=== PATIENT | female | born 1965 | race Caucasian/White ===

== ENCOUNTER 2016-04-30 13:01 | Outpatient (CLI) | payer OTHER ==
[~2016-04-30 13:01] MED LIST: ENDOCET1 TAB PO; IBUPROFEN400 MG PO; NEURONTIN300 MG PO; XANAX0.5 MG PO
--- NOTE | 2016-04-30 14:27 | DIAGNOSTIC IMAGING REPORT ---
PROCEDURE: CT LOW-DOSE LUNG CA SCREENING CLINICAL INDICATION: LUNG CA SCREENING TECHNIQUE: Low-dose helical CT images of the lungs without contrast were obtained and reconstructed at 2.5 mm intervals. MIP reformations in coronal and sagittal planes were created. Radiation dose 1.39 mGy. COMPARISON: Oldest available comparison: Chest x-ray 05/14/2009 FINDINGS: NODULES: Location: Right middle lobe image location: 58 size: 2 mm composition: Ground glass Location: Left lower lobe; image location: 86; size: 3 mm; composition ground-glass Location: Left lower lobe; image location 108; size 3 mm; composition ground-glass OTHER LUNG FINDINGS: Minor anterior right middle lobe scarring. AIRWAY: Branches normally without narrowing or endobronchial nodule. PLEURA: No effusions, thickening, or pneumothorax. AORTA AND GREAT VESSELS: Normal caliber, atherosclerotic calcification. PULMONARY ARTERIES: Normal. . HEART AND PERICARDIUM: Normal size without effusion, thickening. LYMPH NODES: No enlarged nodes visible. THORACIC SPINE: No suspicious lesion. Mild degenerative changes CHEST WALL: Normal. Right breast surgical changes. VISUALIZED UPPER ABDOMEN: Normal. Cholecystectomy. Small hiatal hernia. IMPRESSION: 1. Three bilateral pulmonary nodules 2- 3 mm, indeterminate but likely postinflammatory 2. Category 2. Continue annual screening with LDCT in 12 months. 3. Right breast surgical changes All CT scans at this facility use dose modulation, iterative reconstruction, and/or weight-based dosing when appropriate to reduce radiation dose to as low as reasonably achievable.
--- NOTE | 2016-04-30 18:50 | DIAGNOSTIC IMAGING REPORT ---
PROCEDURE: MG UNILATERAL DIAG-LT W/CAD INDICATION: Follow-up nodular changes and left breast. History of treated right breast carcinoma. TECHNIQUE: CC, MLO and true-lateral digital views of left breast. In addition, spot compression CC and MLO views were obtained of the left breast (region of clinical concern). Finally, high-resolution left breast ultrasound was performed (18 mHz). COMPARISON: Comparison is made to left mammogram and left breast ultrasound (08/29/2015), and screening mammogram study (08/29/2015). Comparison is also made to diagnostic mammogram and left breast ultrasound (03/27/2015). FINDINGS: MAMMOGRAM: Computer-aided detection applied. Moderately dense and mildly nodular parenchymal pattern. A few dystrophic calcifications. BREAST ULTRASOUND: There are three to four benign appearing cysts or normal intramammary lymph nodes in the left breast which appears stable (largest 0.8 cm ). No evidence of underlying abnormality. IMPRESSION: 1. Negative mammogram and negative left breast ultrasound with minor cystic changes and normal intramammary lymph nodes. 2. Findings discussed with the patient. 3. Resume routine screening schedule (August 2016). RESULT CODE: 2- Benign finding(s). A. A negative report should not delay biopsy if a dominant or clinically suspicious mass is present. 10-15% of cancers are not identified by x-ray. B. A negative report may reinforce clinical impression. C. Adenosis and dense breasts may obscure an underlying neoplasm. D. False positive reports average 6-10%. E.. A yearly screening mammogram is recommended. A reminder letter will be scheduled.
== END 2016-04-30 23:00 ==
LOC: MAM SRH 13:01
DX: Z12.31 Encounter for screening mammogram for malignant neoplasm of breast (principal); C50.911 Malignant neoplasm of unspecified site of right female breast; R91.8 Other nonspecific abnormal finding of lung field; D50.9 Iron deficiency anemia, unspecified; Z80.0 Family history of malignant neoplasm of digestive organs

== ENCOUNTER 2016-07-03 11:56 | Emergency (ER) | payer OTHER ==
--- NOTE | 2016-07-03 13:32 | ED NURSING NOTES ---
Clinical Report - Nurses [facility] [address] [place] [address] 07/03/2016 11:57 Patient: HU HOPKINS TRIAGE Triage time 12:03. Acuity: LEVEL 4. Alert. --12:06 Yvonne Arredondo R.N. 12:08 07/03/16. BP: 106/77. HR: 66. RR: 16. O2 saturation: 99%. Temp: 97.5 F. Pain level now 09/20. --12:12 Yvonne Arredondo R.N. Chief Complaint: (Low back pain). --15:02 Yvonne Arredondo R.N. Weight: 56.6 kg stated. Height/Length: 66 inches Per Patient. BMI: 20.1. --12:06 Yvonne Arredondo R.N. Medications Gabapentin Oral. Indocet 10/325, 4x a day. Iron Oral. Xanax Oral. --12:05 Yvonne Arredondo R.N. Allergies No Known Drug Allergy. --12:05 Yvonne Arredondo R.N. History Arrived by private vehicle. Historian: patient. Primary physician (Joanne). Onset. (about 2 weeks ago). ( Was making the bed and had some pain in her lower back 2 weeks ago). 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 Did not take Tylenol or ibuprofen prior to arrival. PAST MEDICAL HX: Immunizations: up-to-date. SOCIAL HX: Current every day heavy tobacco smoker- 1 pack per day. No alcohol use or drug use. --12:06 Yvonne Arredondo R.N. ( Low back pain). --15:01 Yvonne Arredondo R.N. ( low back pain). --15:02 Yvonne Arredondo R.N. PROBLEMS: Acute Pain. Constipation. Broken tooth. Breast Cancer. Fall. Back Pain. LNMP - Last Normal Menstrual Period. Concussion. Knee Injury. Sciatica. Chronic Back Pain. Arthritis. Rheumatoid Arthritis. Brain Tumor. Sinusitis. Headache. Insomnia. Neck Injury. --12:05 Yvonne Arredondo R.N. ADDITIONAL SURGERIES: Bladder Suspension. Cholecystectomy. Hernia Repair. Hysterectomy. --12:05 Yvonne Arredondo R.N. PHYSICAL ASSESSMENT GENERAL / NEURO / PSYCH: Alert. Oriented X 4. Appears in distress. --12:06 Yvonne Arredondo R.N. NURSING PROGRESS NOTES Two patient identifiers checked. Call light placed in reach. Patient ready for evaluation- ED physician notified. --12:06 Yvonne Arredondo R.N. 12:36 07/03/2016 Toradol (Ketorolac Tromethamine) IM 60 mg given. Given in the left gluteus jovanni. Allergies verified and confirmed 5 rights. --12:36 Yvonne Arredondo R.N. The patient is calm and resting quietly. --12:45 Yvonne Arredondo R.N. DISPOSITION / DISCHARGE Condition at departure: improved and stable. No learning barriers present. Discharge instructions provided and reviewed with the patient. Reviewed medication(s) side effects, precautions, dosing and course information. Prescription(s) given to the patient. Reviewed referral to a primary care physician. Activity restrictions (light lifting and rest) reviewed. Patient verbalized understanding. Written instructions provided in Albanian. The patient was discharged by the physician. She was discharged home and accompanied by family. She left the Emergency Department ambulatory and via private vehicle. Family member driving. ( Pt states she is feeling better after the Toradol. Ready for DC, VSS, afebrile, ambulatory, Pt's ride will be here shortly.). --13:41 Cruz Schmidt R.N. 13:39 07/03/16. BP: 97/72. HR: 61. RR: 18. O2 saturation: 100% on room air. Temp: 97.9 F. Pain level now: 06/20. --13:41 Cruz Schmidt R.N. Departure time: 13:43 Jul 03 2016. --13:43 Cruz Schmidt R.N. Locked/Released at 07/03/2016 15:02 by Yvonne Arredondo R.N.
--- NOTE | 2016-07-03 13:32 | ED CLINICAL REPORT ---
Clinical Report - Physicians/Mid Levels [facility] [address] [place] [address] 07/03/2016 11:57 Patient: HU HOPKINS Time Seen: 12:05; initial patient contact. Arrived- By private vehicle. Historian- patient. HISTORY OF PRESENT ILLNESS Chief Complaint: BACK PAIN. Modifying factors- worsened by sitting or walking. Relieved by remaining still. It is described as being moderate in degree and in the area of the left SI joint. The quality is noted to be sharp. No radiation. Onset- about 2 weeks ago and it is still present (persistent). It was abrupt in onset. No bladder dysfunction, bowel dysfunction, sensory loss or motor loss. Patient notes an injury but denies injury to the head or neck. Mechanism of injury- she was lifting. Occurred at home. Similar symptoms previously: None. Recent medical care: Not recently seen/assessed. REVIEW OF SYSTEMS No difficulty with urination or numbness. She has had back pain. All systems otherwise negative, except as recorded above. PAST HISTORY Acute Pain. Constipation. Broken tooth. Breast Cancer. Fall. Back Pain. Concussion. Knee Injury. Sciatica. Chronic Back Pain. Arthritis. Rheumatoid Arthritis. Brain Tumor. Sinusitis. Headache. Insomnia. Neck Injury ADDITIONAL SURGERIES: Bladder Suspension. Cholecystectomy. Hernia Repair. Hysterectomy. Medications: Gabapentin Oral. Indocet 10/325, 4x a day. Iron Oral. Xanax Oral. Allergies: No Known Drug Allergy. SOCIAL HISTORY Current every day smoker. No alcohol use or drug use. ADDITIONAL NOTES The nursing notes have been reviewed with agreement regarding the chief complaint, PMH and patient medications and allergies. PHYSICAL EXAM Vital Signs: 07/03/2016 12:08 BP: 106/77. HR: 66. RR: 16. O2 saturation: 99%. Temp: 97.5 F. Have been reviewed as normal. Appearance: Alert. No acute distress. Back: Moderate tenderness (Left SI joint). No muscle spasm in the back or vertebral point tenderness or tenderness. Skin: Normal skin color. No rash. Extremities: Extremities exhibit normal ROM. Extremities nontender. Neuro: Oriented X 3. Mood/affect normal. No motor deficit. No sensory deficit. Straight leg raising: negative on the right and negative on the left. PROGRESS AND PROCEDURES Disposition: Discharged home in good and improved condition. Condition: good. CLINICAL IMPRESSION Acute left sided sacroiliitis. INSTRUCTIONS Your Current Medications: CONTINUE TAKING THE FOLLOWING MEDICATIONS: Gabapentin Oral. Indocet* : 10/325 4x a day. Iron Oral. Xanax Oral. Prescription Medications: Diclofenac 50 mg tablets: take 1 tablet orally every 8 hours as needed for pain or stiffness. Dispense thirty (30). No refill. Follow-up: Follow up with your doctor in about four days. Call for an appointment. Screening today revealed the patient's blood pressure to be in the normal range. (Electronically signed by Magdaleno Bay Dr. 07/03/2016 13:33)
--- NOTE | 2016-07-03 13:32 | ED NURSING NOTES ---
Clinical Report - Nurses [facility] [address] [place] [address] 07/03/2016 11:57 Patient: HU HOPKINS TRIAGE Triage time 12:03. Acuity: LEVEL 4. Alert. --12:06 Yvonne Arredondo R.N. 12:08 07/03/16. BP: 106/77. HR: 66. RR: 16. O2 saturation: 99%. Temp: 97.5 F. Pain level now 09/20. --12:12 Yvonne Arredondo R.N. Chief Complaint: (Low back pain). --15:02 Yvonne Arredondo R.N. Weight: 56.6 kg stated. Height/Length: 66 inches Per Patient. BMI: 20.1. --12:06 Yvonne Arredondo R.N. Medications Gabapentin Oral. Indocet 10/325, 4x a day. Iron Oral. Xanax Oral. --12:05 Yvonne Arredondo R.N. Allergies No Known Drug Allergy. --12:05 Yvonne Arredondo R.N. History Arrived by private vehicle. Historian: patient. Primary physician (Joanne). Onset. (about 2 weeks ago). ( Was making the bed and had some pain in her lower back 2 weeks ago). 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 Did not take Tylenol or ibuprofen prior to arrival. PAST MEDICAL HX: Immunizations: up-to-date. SOCIAL HX: Current every day heavy tobacco smoker- 1 pack per day. No alcohol use or drug use. --12:06 Yvonne Arredondo R.N. ( Low back pain). --15:01 Yvonne Arredondo R.N. ( low back pain). --15:02 Yvonne Arredondo R.N. PROBLEMS: Acute Pain. Constipation. Broken tooth. Breast Cancer. Fall. Back Pain. LNMP - Last Normal Menstrual Period. Concussion. Knee Injury. Sciatica. Chronic Back Pain. Arthritis. Rheumatoid Arthritis. Brain Tumor. Sinusitis. Headache. Insomnia. Neck Injury. --12:05 Yvonne Arredondo R.N. ADDITIONAL SURGERIES: Bladder Suspension. Cholecystectomy. Hernia Repair. Hysterectomy. --12:05 Yvonne Arredondo R.N. PHYSICAL ASSESSMENT GENERAL / NEURO / PSYCH: Alert. Oriented X 4. Appears in distress. --12:06 Yvonne Arredondo R.N. NURSING PROGRESS NOTES Two patient identifiers checked. Call light placed in reach. Patient ready for evaluation- ED physician notified. --12:06 Yvonne Arredondo R.N. 12:36 07/03/2016 Toradol (Ketorolac Tromethamine) IM 60 mg given. Given in the left gluteus jovanni. Allergies verified and confirmed 5 rights. --12:36 Yvonne Arredondo R.N. The patient is calm and resting quietly. --12:45 Yvonne Arredondo R.N. DISPOSITION / DISCHARGE Condition at departure: improved and stable. No learning barriers present. Discharge instructions provided and reviewed with the patient. Reviewed medication(s) side effects, precautions, dosing and course information. Prescription(s) given to the patient. Reviewed referral to a primary care physician. Activity restrictions (light lifting and rest) reviewed. Patient verbalized understanding. Written instructions provided in Yakut. The patient was discharged by the physician. She was discharged home and accompanied by family. She left the Emergency Department ambulatory and via private vehicle. Family member driving. ( Pt states she is feeling better after the Toradol. Ready for DC, VSS, afebrile, ambulatory, Pt's ride will be here shortly.). --13:41 Cruz Schmidt R.N. 13:39 07/03/16. BP: 97/72. HR: 61. RR: 18. O2 saturation: 100% on room air. Temp: 97.9 F. Pain level now: 06/20. --13:41 Cruz Schmidt R.N. Departure time: 13:43 Jul 03 2016. --13:43 Cruz Schmidt R.N. Locked/Released at 07/03/2016 15:02 by Yvonne Arredondo R.N.
--- NOTE | 2016-07-03 13:32 | ED ORDER SUMMARY ---
..... Patient: HU HOPKINS OrderSheet [facility] VisitID: [id number] [address] [place] [address] 51y, F Registration Date/Time: 07/03/2016 ORDER SHEET Weight: 56.6 kg (stated) Allergies: No Known Drug Allergy GENERAL ORDERS: MEDICATION ORDERS: Toradol IM 60 mg (NOW) (12:25 07/03/2016 Roman Orellnaa) (Ack 12:31 DMalindaarkdameon R.N.) (12:36 Silvio R.N.) IV FLUIDS: ORDER SHEET NOTES: [Electronically signed by Magdaleno Bay Dr. (13:33 07/03/2016)] [Electronically signed by Yvonne Arredondo R.N. (15:02 07/03/2016)] [Electronically locked/signed by Yvonne Arredondo R.N. (15:02 07/03/2016)]
--- NOTE | 2016-07-03 13:32 | ED CLINICAL REPORT ---
Clinical Report - Physicians/Mid Levels [facility] [address] [place] [place] [address] 07/03/2016 11:57 Patient: HU HOPKINS Time Seen: 12:05; initial patient contact. Arrived- By private vehicle. Historian- patient. HISTORY OF PRESENT ILLNESS Chief Complaint: BACK PAIN. Modifying factors- worsened by sitting or walking. Relieved by remaining still. It is described as being moderate in degree and in the area of the left SI joint. The quality is noted to be sharp. No radiation. Onset- about 2 weeks ago and it is still present (persistent). It was abrupt in onset. No bladder dysfunction, bowel dysfunction, sensory loss or motor loss. Patient notes an injury but denies injury to the head or neck. Mechanism of injury- she was lifting. Occurred at home. Similar symptoms previously: None. Recent medical care: Not recently seen/assessed. REVIEW OF SYSTEMS No difficulty with urination or numbness. She has had back pain. All systems otherwise negative, except as recorded above. PAST HISTORY Acute Pain. Constipation. Broken tooth. Breast Cancer. Fall. Back Pain. Concussion. Knee Injury. Sciatica. Chronic Back Pain. Arthritis. Rheumatoid Arthritis. Brain Tumor. Sinusitis. Headache. Insomnia. Neck Injury ADDITIONAL SURGERIES: Bladder Suspension. Cholecystectomy. Hernia Repair. Hysterectomy. Medications: Gabapentin Oral. Indocet 10/325, 4x a day. Iron Oral. Xanax Oral. Allergies: No Known Drug Allergy. SOCIAL HISTORY Current every day smoker. No alcohol use or drug use. ADDITIONAL NOTES The nursing notes have been reviewed with agreement regarding the chief complaint, PMH and patient medications and allergies. PHYSICAL EXAM Vital Signs: 07/03/2016 12:08 BP: 106/77. HR: 66. RR: 16. O2 saturation: 99%. Temp: 97.5 F. Have been reviewed as normal. Appearance: Alert. No acute distress. Back: Moderate tenderness (Left SI joint). No muscle spasm in the back or vertebral point tenderness or tenderness. Skin: Normal skin color. No rash. Extremities: Extremities exhibit normal ROM. Extremities nontender. Neuro: Oriented X 3. Mood/affect normal. No motor deficit. No sensory deficit. Straight leg raising: negative on the right and negative on the left. PROGRESS AND PROCEDURES Disposition: Discharged home in good and improved condition. Condition: good. CLINICAL IMPRESSION Acute left sided sacroiliitis. INSTRUCTIONS Your Current Medications: CONTINUE TAKING THE FOLLOWING MEDICATIONS: Gabapentin Oral. Indocet* : 10/325 4x a day. Iron Oral. Xanax Oral. Prescription Medications: Diclofenac 50 mg tablets: take 1 tablet orally every 8 hours as needed for pain or stiffness. Dispense thirty (30). No refill. Follow-up: Follow up with your doctor in about four days. Call for an appointment. Screening today revealed the patient's blood pressure to be in the normal range. (Electronically signed by Magdaleno Bay Dr. 07/03/2016 13:33)
--- NOTE | 2016-07-03 13:32 | ED ORDER SUMMARY ---
..... Patient: HU HOPKINS OrderSheet [facility] VisitID: [id number] [address] [place] [address] 51y, F Registration Date/Time: 07/03/2016 ORDER SHEET Weight: 56.6 kg (stated) Allergies: No Known Drug Allergy GENERAL ORDERS: MEDICATION ORDERS: Toradol IM 60 mg (NOW) (12:25 07/03/2016 Roman Orellana) (Ack 12:31 DMalindaarkdameon R.N.) (12:36 Silvio R.N.) IV FLUIDS: ORDER SHEET NOTES: [Electronically signed by Magdaleno Bay Dr. (13:33 07/03/2016)] [Electronically signed by Yvonne Arredondo R.N. (15:02 07/03/2016)] [Electronically locked/signed by Yvonne Arredondo R.N. (15:02 07/03/2016)]
--- NOTE | 2016-07-03 15:03 | ED MED RECONCILIATION SUMMARY ---
Patient: HU HOPKINS Medication Reconciliation Report [facility] VisitID: [id number] [address] [place] [address] 51y, F Registration Date/Time: 07/03/2016 Weight: 56.6 kg Height/Length: 66 in. BMI: 20.1 ALLERGIES: No Known Drug Allergy The patient's Home Medications are listed below: CONTINUE TAKING THE FOLLOWING MEDICATIONS: Gabapentin Oral Indocet 10/325, 4x a day Iron Oral Xanax Oral The source(s) of the original Home Medication information: Not obtained. The following Medications were given to the patient in the Emergency Department: Toradol [IM] IM 60 mg, administered: 07/03/2016 12:36:00 PM The following Medications were prescribed to the patient: Diclofenac 50 mg tablets: take 1 tablet orally every 8 hours as needed for pain or stiffness. Dispense thirty (30). No refill. -- Magdaleno Bay Dr.
--- NOTE | 2016-07-03 15:03 | ED DISCHARGE INSTRUCTIONS ---
Patient: HU HOPKINS General Instructions [facility] VisitID: [id number] [address] [place] [address] 51y, F Registration Date/Time: 07/03/2016 Acute left sided sacroiliitis. INSTRUCTIONS Your Current Medications: CONTINUE TAKING THE FOLLOWING MEDICATIONS: Gabapentin Oral. Indocet* : 10/325 4x a day. Iron Oral. Xanax Oral. Prescription Medications: Diclofenac 50 mg tablets: take 1 tablet orally every 8 hours as needed for pain or stiffness. Dispense thirty (30). No refill. Follow-up: Follow up with your doctor in about four days. Call for an appointment. Screening today revealed the patient's blood pressure to be in the normal range. ADDITIONAL INFORMATION Sacroiliitis The sacrum is the triangular bone at the base of the spine. Sacroiliac joints (also known as S-I joints) connect the sacrum to the other pelvis bones. Sometimes one or both S-I joints become injured or inflamed. When this occurs, small movements of the lower back and pelvis may be very painful. This condition is called sacroiliitis ([id number]). It may occur along with other diseases such as rheumatoid arthritis, psoriasis, Crohns disease or colitis. Common symptoms include pain or stiffness in the hips, lower back, thighs or buttocks. Pain occurs most often in the morning or after sitting for long periods of time. The pain may worsen when walking. The swinging motion of the hips strains the S-I joints. Sacroiliitis is caused by many factors such as: Heavy lifting (especially if done incorrectly) Traumatic injury (a fall or vehicle accident) Degenerative arthritis Infection of the joint This condition is difficult to diagnose. Injecting a numbing medicine into the S-I joint is one way to confirm the diagnosis. It may be confused with other causes of low back pain. Treatment consists of rest, physical therapy and anti-inflammatory medicines. If there is another medical condition causing the sacroiliitis, that needs to be treated also. Further testing may be needed if symptoms dont improve with current treatment. Home Care: If your doctor has prescribed medications, take all of them as directed. You may use acetaminophen (Tylenol), ibuprofen (Advil, Motrin) to control pain, unless another medicine was prescribed. If prednisone was prescribed, do not take ibuprofen-type medicines. [NOTE: If you have chronic liver or kidney disease or ever had a stomach ulcer or GI bleeding, talk with your doctor before using this medication.] If you were referred to physical therapy, arrange the appointment as directed. Follow through with any prescribed exercises. Dont smoke. Smoking decreases blood flow to the inflamed area. This makes it harder to treat. Follow Up with your doctor or as advised by our staff. [NOTE: If you had an x-ray, MRI (magnetic resonance imaging) scan, they will be reviewed by a specialist. You will be notified of any new findings that may affect your care.] Return Promptly or contact your doctor if any of the following occur: Increasing low back pain Weakness, numbness in one or both legs Loss of bowel or bladder control Numbness in the groin area Inflammation of the eyes Skin rash or redness You have been given the following additional information: Sacroiliitis (Electronically signed by Magdaleno Bay Dr. 07/03/2016 13:33)
--- NOTE | 2016-07-03 15:03 | ED MAR SUMMARY ---
..... Medication Administration Record [facility] [address] [place] [address] Patient: HU HOPKINS Visit ID: [id number] 51y, F Weight: 56.6 kg Height/Length: 66 in BMI: 20.1 ALLERGIES: No Known Drug Allergy Given 12:36 07/03/2016 Yvonne Arredondo R.N. Medication Administered: TORADOL [IM] (KETOROLAC TROMETHAMINE), Dose: 60 mg IM. Medication Ordered: Toradol IM 60 mg (NOW).
--- NOTE | 2016-07-03 15:03 | ED DISCHARGE INSTRUCTIONS ---
Patient: HU HOPKINS General Instructions [facility] VisitID: [id number] [address] [place] [address] 51y, F Registration Date/Time: 07/03/2016 Acute left sided sacroiliitis. INSTRUCTIONS Your Current Medications: CONTINUE TAKING THE FOLLOWING MEDICATIONS: Gabapentin Oral. Indocet* : 10/325 4x a day. Iron Oral. Xanax Oral. Prescription Medications: Diclofenac 50 mg tablets: take 1 tablet orally every 8 hours as needed for pain or stiffness. Dispense thirty (30). No refill. Follow-up: Follow up with your doctor in about four days. Call for an appointment. Screening today revealed the patient's blood pressure to be in the normal range. ADDITIONAL INFORMATION Sacroiliitis The sacrum is the triangular bone at the base of the spine. Sacroiliac joints (also known as S-I joints) connect the sacrum to the other pelvis bones. Sometimes one or both S-I joints become injured or inflamed. When this occurs, small movements of the lower back and pelvis may be very painful. This condition is called sacroiliitis ([id number]). It may occur along with other diseases such as rheumatoid arthritis, psoriasis, Crohns disease or colitis. Common symptoms include pain or stiffness in the hips, lower back, thighs or buttocks. Pain occurs most often in the morning or after sitting for long periods of time. The pain may worsen when walking. The swinging motion of the hips strains the S-I joints. Sacroiliitis is caused by many factors such as: Heavy lifting (especially if done incorrectly) Traumatic injury (a fall or vehicle accident) Degenerative arthritis Infection of the joint This condition is difficult to diagnose. Injecting a numbing medicine into the S-I joint is one way to confirm the diagnosis. It may be confused with other causes of low back pain. Treatment consists of rest, physical therapy and anti-inflammatory medicines. If there is another medical condition causing the sacroiliitis, that needs to be treated also. Further testing may be needed if symptoms dont improve with current treatment. Home Care: If your doctor has prescribed medications, take all of them as directed. You may use acetaminophen (Tylenol), ibuprofen (Advil, Motrin) to control pain, unless another medicine was prescribed. If prednisone was prescribed, do not take ibuprofen-type medicines. [NOTE: If you have chronic liver or kidney disease or ever had a stomach ulcer or GI bleeding, talk with your doctor before using this medication.] If you were referred to physical therapy, arrange the appointment as directed. Follow through with any prescribed exercises. Dont smoke. Smoking decreases blood flow to the inflamed area. This makes it harder to treat. Follow Up with your doctor or as advised by our staff. [NOTE: If you had an x-ray, MRI (magnetic resonance imaging) scan, they will be reviewed by a specialist. You will be notified of any new findings that may affect your care.] Return Promptly or contact your doctor if any of the following occur: Increasing low back pain Weakness, numbness in one or both legs Loss of bowel or bladder control Numbness in the groin area Inflammation of the eyes Skin rash or redness You have been given the following additional information: Sacroiliitis (Electronically signed by [address] Dr. 07/03/2016 13:33)
--- NOTE | 2016-07-03 15:03 | ED MED RECONCILIATION SUMMARY ---
Patient: HU HOPKINS Medication Reconciliation Report [facility] VisitID: [id number] [address] [place] [address] 51y, F Registration Date/Time: 07/03/2016 Weight: 56.6 kg Height/Length: 66 in. BMI: 20.1 ALLERGIES: No Known Drug Allergy The patient's Home Medications are listed below: CONTINUE TAKING THE FOLLOWING MEDICATIONS: Gabapentin Oral Indocet 10/325, 4x a day Iron Oral Xanax Oral The source(s) of the original Home Medication information: Not obtained. The following Medications were given to the patient in the Emergency Department: Toradol [IM] IM 60 mg, administered: 07/03/2016 12:36:00 PM The following Medications were prescribed to the patient: Diclofenac 50 mg tablets: take 1 tablet orally every 8 hours as needed for pain or stiffness. Dispense thirty (30). No refill. -- [address] [place] Dr[address]
--- NOTE | 2016-07-03 15:03 | ED MAR SUMMARY ---
..... Medication Administration Record [facility] [address] [place] [address] Patient: HU HOPKINS Visit ID: [id number] 51y, F Weight: 56.6 kg Height/Length: 66 in BMI: 20.1 ALLERGIES: No Known Drug Allergy Given 12:36 07/03/2016 Yvonne Arredondo R.N. Medication Administered: TORADOL [IM] (KETOROLAC TROMETHAMINE), Dose: 60 mg IM. Medication Ordered: Toradol IM 60 mg (NOW).
== END 2016-07-03 13:43 | disposition home or self-care (01) ==
LOC: ED SRH 11:56
DX: M46.1 Sacroiliitis, not elsewhere classified (principal); F17.200 Nicotine dependence, unspecified, uncomplicated

== ENCOUNTER 2016-08-13 13:54 | Outpatient (CLI) | payer OTHER ==
--- NOTE | 2016-08-13 16:44 | DIAGNOSTIC IMAGING REPORT ---
PROCEDURE: CT HEAD W/WO CONTRAST INDICATION: MENINGIOMA TECHNIQUE: Noncontrast axial images. Following 70 ml of Isovue 370, axial images were repeated. Sagittal and coronal reformations. COMPARISON: Head CT 06/06/2011 FINDINGS: There has been no change in size of the left frontal meningioma. Again there is no edema or mass effect. The rest of the brain is normal. Sinuses and mastoids are normal. IMPRESSION: 1. No change in the less than 2 cm left frontal meningioma.
== END 2016-08-13 23:00 ==
LOC: CT SRH 13:54
DX: D32.0 Benign neoplasm of cerebral meninges (principal); Z01.812 Encounter for preprocedural laboratory examination
CPT/HCPCS: 90074; 91631; 92560

== ENCOUNTER 2016-08-29 10:40 | Outpatient (CLI) | payer OTHER ==
--- NOTE | 2016-08-29 11:07 | DIAGNOSTIC IMAGING REPORT ---
PROCEDURE: XR ANKLE 3 OR 4 VIEWS - LEFT INDICATION: LEFT ANKLE SPRAIN TECHNIQUE: Four views. COMPARISON: None. FINDINGS: Osseous structures and joint spaces are normal. IMPRESSION: 1. Normal left ankle.
--- NOTE | 2016-08-29 13:02 | DIAGNOSTIC IMAGING REPORT ---
PROCEDURE: MG BILATERAL SCREENING W/CAD INDICATION: Screening, personal history of right breast cancer status post lumpectomy and radiation. Family history of mother with breast cancer. TECHNIQUE: Standard CC and MLO views bilaterally. Computer aided detection was used. COMPARISON: 04/30/2016, 08/29/2015, 03/27/2015 FINDINGS: Mild to moderately dense fibroglandular tissue is present bilaterally. Surgical clips in the lateral right breast, stable architectural distortion in the surgical bed without developing density or suspicious microcalcifications. Stable nodular densities, either cysts and/or benign intramammary lymph nodes within the left breast. No developing densities, areas of architectural distortion, or suspicious microcalcifications. IMPRESSION: 1. Stable mammograms without radiographic evidence of malignancy. 2. Right breast postsurgical changes without mammographic evidence of recurrence RESULT CODE: 2- Benign findings. A. A negative report should not delay biopsy if a dominant or clinically suspicious mass is present. 10-15% of cancers are not identified by x-ray. B. A negative report may reinforce clinical impression. C. Adenosis and dense breasts may obscure an underlying neoplasm. D. False positive reports average 6-10%. E.. A yearly screening mammogram is recommended. A reminder letter will be scheduled.
== END 2016-08-29 23:00 ==
LOC: XR SRH 10:40 → MAM SRH 10:40 → XR SRH 23:00
DX: S93.402A Sprain of unspecified ligament of left ankle, initial encounter (principal); Z12.31 Encounter for screening mammogram for malignant neoplasm of breast; Z85.3 Personal history of malignant neoplasm of breast; Z80.3 Family history of malignant neoplasm of breast

== ENCOUNTER → 2016-09-06 | Outpatient (CLI) | payer OTHER | LOC: LAB SRH 10:54 | DX: R19.7 Diarrhea, unspecified (principal) | CPT/HCPCS: 90112 ==

== ENCOUNTER 2016-09-10 11:45 | Outpatient (CLI) | payer OTHER ==
--- NOTE | 2016-09-10 12:46 | DIAGNOSTIC IMAGING REPORT ---
PROCEDURE: XR THORACIC SPINE 3 VIEWS INDICATION: FREQUENT FALLS TECHNIQUE: Three views. COMPARISON: None. FINDINGS: Osseous structures and disc spaces are normal. No evidence of an acute process or fracture. IMPRESSION: 1. Negative thoracic spine.
--- NOTE | 2016-09-10 12:49 | DIAGNOSTIC IMAGING REPORT ---
PROCEDURE: XR RIBS BILATERAL INDICATION: FREQUENT FALLS TECHNIQUE: Two views of the right ribs with single PA view chest. COMPARISON: None. FINDINGS: LEFT RIBS: No displaced rib fractures. No suspicious rib lesions. RIGHT RIBS: No displaced rib fractures. No suspicious rib lesions. CHEST: Normal cardiomediastinal contour. Clear lungs without pleural effusion, pneumothorax, or contusion. The other visible osseous structures are intact. IMPRESSION: 1. Intact right ribs. Intact left ribs 2. Normal chest without radiographic evidence of trauma.
== END 2016-09-10 23:00 ==
LOC: XR SRH 11:45
DX: R29.6 Repeated falls (principal)